=== PATIENT | female | born 1945 | race Caucasian/White ===

== ENCOUNTER 2017-04-12 19:49 | Emergency (ER) | payer MEDICARE, OTHER ==
--- NOTE | 2017-04-12 20:09 | ERPHSYRPT ---
- History of Present Illness Time Seen by Provider: 04/12/17 20:02 Source: patient Exam Limitations: no limitations (1 all) Physician History: The patient is a 71-year-old female who complains of noticing a large bruise tonight on her left inner thigh and another bruise on her left lateral knee. She does not recall hitting anything in causing the bruising. She takes Plavix. The bruises are slightly tender. Her past medical history is significant for coronary artery disease, stent basement, hypertension, congestive heart failure, emphysema, high cholesterol. Timing/Duration: today Quality: painful, other (bruising) Location: extremities Possible Causes: no cause identified Associated Symptoms: denies symptoms Allergies/Adverse Reactions: No Known Drug Allergies Allergy (Verified 04/12/17 20:10) Home Medications: Albuterol Sulfate [Proventil Hfa] 1 ea IH QID 07/08/15 [History] Albuterol/Ipratropium 3ml Neb* [DUONEB 0.5-3 MG/3 ml Neb] 3 ml IH QID [History] Aspirin 81 gm Chew [Baby Aspirin 81 mg Chew] 81 mg PO DAILY 07/08/15 [ History] Atorvastatin Calcium [Lipitor 40Mg] 40 mg PO HS 07/08/15 [History] Bumetanide [Bumex] 2 mg PO DAILY 07/08/15 [History] Clopidogrel Bisulfate 75 mg [PLAVIX 75 MG Tablet] 75 mg PO DAILY 07/08/15 [History] Colestipol HCl [Colestid] 1 gm PO BID 07/08/15 [History] Meloxicam 15 mg [Meloxicam 15 MG] 15 mg PO DAILY 07/08/15 [History] Metoclopramide HCl [Reglan] 10 mg PO TID 07/08/15 [History] Nebivolol HCl [Bystolic] 20 mg PO BID 07/08/15 [History] Omeprazole [Prilosec] 40 mg PO DAILY 07/08/15 [History] Pregabalin [Lyrica] 75 mg PO HS 07/08/15 [History] Ropinirole HCl [Requip] 2 mg PO QHS 07/08/15 [History] Sertraline HCl 50 mg PO DAILY 07/08/15 [History] Sucralfate 1 gm [Carafate 1 GM] 1 g PO ACHS 07/08/15 [History] Tiotropium [place] Inhaler [Spiriva 18 Mcg/Cap Inhaler] 1 ea IH DAILY [History] Alprazolam 1 mg [Xanax 1 mg] 1 mg PO TID 10/11/15 [History] Ranolazine 500 MG [Ranexa 500 MG] 1,000 mg PO BID 10/11/15 [History] Mesalamine [Delzicol] 400 mg PO DAILY 01/07/16 [History] Telmisartan 80 mg [Micardis 80 MG Tablet] 40 mg PO HS 01/07/16 [History] Oxycodone HCl/Acetaminophen [Percocet 10-325 mg Tablet] 1 each PO Q4-6HPRN PRN 01/31/16 [History] Hx Tetanus, Diphtheria Vaccination/Date Given: No Hx Influenza Vaccination/Date Given: Yes Hx Pneumococcal Vaccination/Date Given: Yes - Review of Systems Constitutional: No Fever, No Chills Eyes: No Symptoms Ears, Nose, & Throat: No Symptoms Respiratory: No Cough, No Dyspnea Cardiac: No Chest Pain, No Edema, No Syncope Abdominal/Gastrointestinal: No Abdominal Pain, No Nausea, No Vomiting, No Diarrhea Genitourinary Symptoms: No Dysuria Musculoskeletal: No Back Pain, No Neck Pain Skin: Other (bruising) Neurological: No Dizziness, No Focal Weakness, No Sensory Changes Psychological: No Symptoms Endocrine: No Symptoms Hematologic/Lymphatic: No Symptoms Immunological/Allergic: No Symptoms All Other Systems: Reviewed and Negative - Past Medical History Pertinent Past Medical History: Yes Neurological History: Stroke ENT History: No Pertinent History Cardiac History: Congestive Heart Failure, Coronary Artery Disease, Hypertension , Myocardial Infarction ([place]) Respiratory History: COPD Endocrine Medical History: No Pertinent History Musculoskeletal History: Fibromyalgia, Osteoarthritis GI Medical History: GERD, Gallbladder Disease, Hernia, Pancreatitis History: No Pertinent History Psycho-Social History: Anxiety, Depression Female Reproductive Disorders: No Pertinent History Other Medical History: PT. HAD C-SPINE AND L-SPINE IN THE ; CVA 09/28 STILL HAS R HAND NUMBNESS; PT. HAS CARDIAC STENT PLACEMENT - Past Surgical History Past Surgical History: Yes Cardiac: Cardiac Catheterization, Cardiac Stent Respiratory: No Pertinent History Gastrointestinal: Appendectomy, Cholecystectomy Female Surgical History: Hysterectomy Other Surgical History: tonsil/adnoids - Social History Smoking Status: Current every day smoker How long have you smoked: 37 years Exposure to second hand smoke: Yes Drug Use: none Patient Lives Alone: No - Nursing Vital Signs Nursing Vital Signs: Initial Vital Signs Temperature 98.5 F 04/12/17 19:57 Respiratory Rate 18 04/12/17 19:57 Blood Pressure 189/110 04/12/17 19:57 O2 Sat by Pulse Oximetry 97 04/12/17 19:57 Pain Scale Pain Intensity 5 - Physical Exam General Appearance: no apparent distress, alert Eye Exam: PERRL/EOMI, eyes nml inspection Ears, Nose, Throat Exam: normal ENT inspection, pharynx normal, moist mucous membranes Neck Exam: normal inspection, non-tender, supple, full range of motion Respiratory Exam: normal breath sounds, lungs clear, No respiratory distress Cardiovascular Exam: regular rate/rhythm, normal heart sounds Gastrointestinal/Abdomen Exam: soft, mass, No tenderness Pelvic Exam: not done Rectal Exam: not done Back Exam: normal inspection, normal range of motion, No CVA tenderness, No vertebral tenderness Extremity Exam: normal inspection, normal range of motion Neurologic Exam: alert, oriented x 3, cooperative, normal mood/affect, sensation nml, No motor deficits Skin Exam: ecchymosis (There appears to be a large recent triple bruise on the inner aspect of her left thigh that is approximately 2-3 hand widths in size. There is a line of demarcation which makes it apparent that she may have brushed against a solid object causing bruising. There is also a purple recent bruise to the lateral aspect of her left knee there is about one hand with in size. This area is tender to palpation as is the other one on her upper thigh. There is a small thumb-sized bruise on her inner aspect of her right ankle.) SpO2 Interpretation: normal Ordered Tests: Active Orders 24 hr Category Date Time Status CBC W DIFF Stat Lab 04/12/17 20:30 Completed CMP Stat Lab 04/12/17 20:30 Completed CULTURE,URINE Stat Lab 04/12/17 21:06 Received PROTIME WITH INR Stat Lab 04/12/17 20:30 Completed UA W/ MICROSCOPIC Stat Lab 04/12/17 21:06 Completed Lab/Rad Data: Laboratory Result Diagrams 04/12/17 20:30 04/12/17 20:30 Laboratory Results 04/12/17 04/12/17 04/12/17 Range/Units 21:06 20:30 20:30 WBC (4.0-10.5) K/mm3 RBC (4.1-5.4) M/mm3 Hgb (12.0-16.0) gm/dl Hct (35-47) % MCV (78-100) fl MCH (26-32) pg MCHC (32-36) g/dl RDW (11.5-14.0) % Plt Count (150-450) K/mm3 MPV (6-9.5) fl Gran % (36.0-66.0) % Lymphocytes % (24.0-44.0) % Monocytes % (0.0-12.0) % Eosinophils % (0.00-5.0) % Basophils % (0.0-0.4) % Basophils # (0-0.4) INR 1.03 (0.8-3.0) Sodium 142 (136-145) mEq/L Potassium 4.5 (3.5-5.1) mEq/L Chloride 108 H (98-107) mEq/L Carbon Dioxide 29.0 (21-32) mEq/L Anion Gap 9.7 (5-15) MEQ/L BUN 16 (9-20) mg/dL Creatinine 1.13 (0.55-1.30) mg/dl Estimated GFR 51 ML/MIN Glucose 100 (70-110) MG/DL Calcium 9.0 (8.5-10.1) mg/dL Total Bilirubin 0.30 (0.2-1.0) mg/dL AST 19 (15-37) U/L ALT 19 (12-78) U/L Alkaline Phosphatase 99 (46-116) U/L Serum Total Protein 6.5 (6.4-8.2) gm/dL Albumin 3.4 (3.4-5.0) g/dL Ur Collection Type CLEAN CATCH Urine Color YELLOW (YELLOW) Urine Appearance CLEAR (CLEAR) Urine pH 8.0 (5-6) Ur Specific [place] 1.010 (1.005-1.025) Urine Protein NEGATIVE (Negative) Urine Ketones NEGATIVE (NEGATIVE) Urine Blood TRACE NON-HEM (0-5) [place]/ul Urine Nitrite NEGATIVE (NEGATIVE) Urine Bilirubin NEGATIVE (NEGATIVE) Urine Urobilinogen NORMAL (0-1) mg/dL Ur Leukocyte Esterase TRACE (NEGATIVE) Urine Microscopic WBC 2-5 (0-5) /HPF Ur Epithelial Cells FEW (FEW) /HPF Urine Bacteria FEW (NEGATIVE) /HPF Urine Glucose NEGATIVE (NEGATIVE) mg/dL Specimen Received [id number] 04/12/17 Range/Units 20:30 WBC 5.8 (4.0-10.5) K/mm3 RBC 4.09 L (4.1-5.4) M/mm3 Hgb 12.5 (12.0-16.0) gm/dl Hct 38.9 (35-47) % MCV 95.1 (78-100) fl MCH 30.5 (26-32) pg MCHC 32.1 (32-36) g/dl RDW 14.2 H (11.5-14.0) % Plt Count 211 (150-450) K/mm3 MPV 9.3 (6-9.5) fl Gran % 58.0 (36.0-66.0) % Lymphocytes % 31.3 (24.0-44.0) % Monocytes % 7.9 (0.0-12.0) % Eosinophils % 2.6 (0.00-5.0) % Basophils % 0.2 (0.0-0.4) % Basophils # 0.01 (0-0.4) INR (0.8-3.0) Sodium (136-145) mEq/L Potassium (3.5-5.1) mEq/L Chloride (98-107) mEq/L Carbon Dioxide (21-32) mEq/L Anion Gap (5-15) MEQ/L BUN (9-20) mg/dL Creatinine (0.55-1.30) mg/dl Estimated GFR ML/MIN Glucose (70-110) MG/DL Calcium (8.5-10.1) mg/dL Total Bilirubin (0.2-1.0) mg/dL AST (15-37) U/L ALT (12-78) U/L Alkaline Phosphatase (46-116) U/L Serum Total Protein (6.4-8.2) gm/dL Albumin (3.4-5.0) g/dL Ur Collection Type Urine Color (YELLOW) Urine Appearance (CLEAR) Urine pH (5-6) Ur Specific [place] (1.005-1.025) Urine Protein (Negative) Urine Ketones (NEGATIVE) Urine Blood (0-5) Graham/ul Urine Nitrite (NEGATIVE) Urine Bilirubin (NEGATIVE) Urine Urobilinogen (0-1) mg/dL Ur Leukocyte Esterase (NEGATIVE) Urine Microscopic WBC (0-5) /HPF Ur Epithelial Cells (FEW) /HPF Urine Bacteria (NEGATIVE) /HPF Urine Glucose (NEGATIVE) mg/dL Specimen Received - Progress Progress: unchanged Counseled pt/family regarding: lab results, diagnosis, need for follow-up - Departure Time of Disposition: 21:40 Departure Disposition: Home Clinical Impression: Ecchymosis on examination Condition: Stable Critical Care Time: No Additional Instructions: You have some bruising on your left inner thigh and your outer left knee. This is likely due to the blood thinner that you are taking. At this time all laboratory results are normal. If you have a worsening condition, please follow -up tomorrow with your local doctor.
[2017-04-12 20:10] VITALS: BP 189/110; O2SAT 97
[2017-04-12 20:33] LABS: BASOPHIL % 0.2 % (0.0-0.4); Eosinophil % 2.6 % (0.00-5.0); Lymphocytes % 31.3 % (24.0-44.0); Mean Cell Volume 95.1 fl (78-100); Mean Corpuscular Hemoglobin 30.5 pg (26-32); Mean Platelet Volume 9.3 fl (6-9.5); Monocytes % 7.9 % (0.0-12.0); Platelet Count 211 K/mm3 (150-450); Red Blood Count 4.09 M/mm3 (4.1-5.4); Red Cell Distribution Width 14.2 % (11.5-14.0); White Blood Count 5.8 K/mm3 (4.0-10.5)
[2017-04-12 20:44] LABS: INR 1.03 (0.8-3.0); PROTIME 11.6 SECONDS (9.95-12.35)
[2017-04-12 20:51] LABS: ALBUMIN 3.4 g/dL (3.4-5.0); ANION GAP 9.7 MEQ/L (5-15); BILIRUBIN,TOTAL 0.3 mg/dL (0.2-1.0); Potassium 4.5 mEq/L (3.5-5.1); Total Protein 6.5 gm/dL (6.4-8.2)
[2017-04-12 21:20] LABS: Bilirubin NEGATIVE (NEGATIVE); Blood TRACE NON-HEM Ery/ul (0-5); COMPLETE URINE MICROSCOPIC? YES; Collection Type CLEAN CATCH; Glucose NEGATIVE (NEGATIVE); Leukocyte Esterase TRACE (NEGATIVE)
[2017-04-12 21:24] LABS: ADD URINE CULTURE? YES (NO); Bacteria FEW /HPF (NEGATIVE); Epithelial Cells FEW /HPF (FEW)
== END 2017-04-12 21:46 | disposition home or self-care (01) ==
LOC: ED 19:49
DX: R58 Hemorrhage, not elsewhere classified (principal); S70.12XA Contusion of left thigh, initial encounter; S80.02XA Contusion of left knee, initial encounter; I25.10 Atherosclerotic heart disease of native coronary artery without angina pectoris; I10 Essential (primary) hypertension; I50.9 Heart failure, unspecified; E78.00 Pure hypercholesterolemia, unspecified; J43.9 Emphysema, unspecified; Z79.899 Other long term (current) drug therapy; I25.2 Old myocardial infarction
CPT/HCPCS: 36415; 80053; 81000; 85025; 85610; 87077; 87086; 99283

== ENCOUNTER 2022-05-20 10:47 | Day surgery (SDC) | payer MEDICARE ==
[2022-05-20] MEDS ORDERED: Depo-Medrol 40 MG/ML IM ONE (10:48)
[2022-05-20] MEDS ORDERED: Sodium Chloride 0.9(Preservative Free) 10 ML IJ ONE (10:48)
[2022-05-20] MEDS ORDERED: Versed 2 MG/2 ML Injection ONE (11:28)
[2022-05-20] MEDS ORDERED: Reglan 10 MG/2 ML ONE (11:28)
[2022-05-20] MEDS ORDERED: Pepcid 20 MG VIAL IV ONE (11:28)
[2022-05-20] MEDS ORDERED: DIPRIVAN 200 MG/20 ML IV ONE (12:41)
--- NOTE | 2022-05-20 13:38 | XRAY ---
Indication: Right L3-L5 transforaminal DONITA. Intraoperative fluoroscopy provided for 22 seconds. 2 digital spot image submitted for interpretation demonstrates posterior needle tips projecting over the expected right L3 and L4 nerve roots. Small amount of contrast injected for needle tip placement. Correlate with intraoperative findings/report.
--- NOTE | 2022-05-20 13:38 | XRAY ---
22 seconds fluoroscopy time in surgery for right L3-L5 transforaminal DONITA.
== END 2022-05-20 13:05 | disposition home or self-care (01) ==
LOC: SDC-PAIN 10:47
PROVIDERS: ATTEND Psychiatry & Neurology Pain Medicine
DX: M54.16 Radiculopathy, lumbar region (principal); Z79.899 Other long term (current) drug therapy
CPT/HCPCS: 64483; 64484; 72100; 77003; J1030; J2250; J2704; Q9966